=== PATIENT | female | born 1945 | race Caucasian/White ===

== ENCOUNTER 2018-11-09 13:10 | Inpatient (IN) ==
[2018-11-09] MEDS ORDERED: NS 1,000 ML IV ONE (13:29)
--- NOTE | 2018-11-09 14:04 | Diag Imaging Result Doc PS360 ---
EXAM: CHEST-PORTABLE HISTORY: stroke like symptoms TECHNIQUE: AP chest COMPARISON: 10/03/2018 FINDINGS: The lungs are well expanded. The heart is remains enlarged. The vessels are not distended. There are no infiltrates. No effusion identified. There is cement within a mid thoracic vertebra. This is unchanged. IMPRESSION: Stable chest. Electronically signed by Semaj Olivera 11/09/2018 2:02 PM
--- NOTE | 2018-11-09 14:21 | Diag Imaging Result Doc PS360 ---
EXAM: CT HEAD W/O CONTRAST INDICATION: stroke like symptoms TECHNIQUE: This exam was performed using automated exposure control, adjustment of mA or kV according to patient size, and/or use of iterative reconstruction technique. COMPARISON: 10/03/2018 FINDINGS: There is patchy low attenuation in the periventricular and subcortical white matter suggesting moderate microangiopathy, stable. There is no definite acute infarct given the limited sensitivity of CT versus MRI. There is no discrete intracranial mass, mass effect, or intracranial hemorrhage. The surrounding soft tissues and bony structures are essentially unremarkable. IMPRESSION: Stable chronic appearing changes as described. No definite acute pathology by CT. Electronically signed by Ander Cherry 11/09/2018 2:18 PM
[2018-11-09 15:10] LABS: URINE SOURCE CLEAN CATCH
[2018-11-09 15:26] LABS: BASO# 0.03 X1000 (0.0-0.2); BASO% 0.4 % (0.0-0.8); EOS# 0.09 X1000 (0.0-0.7); EOS% 1.3 % (0.0-10.0); HEMOGLOBIN 9.1 g/dL (12.0-16.0); LYMPH# 2.02 X1000 (1.2-3.4); LYMPH% 28.6 % (20.5-51.1); MCH 23.3 PG (27-31); MCHC 29.4 g/dL (33-37); MCV 79.5 FL (81-99); MONO# 0.64 X1000 (0.11-0.59); MONO% 9.1 % (1.7-9.3); MPV 9.7 FL (7.4-10.4); NEUT# 4.28 X1000 (1.4-6.5); NEUT% 60.6 % (42.2-75.2); PLT 255 X1000 (130-400); RDW 17.2 % (11.5-14.5); WBC 7.06 X1000 (4.8-10.8)
[2018-11-09 15:26] LABS: BILIRUBIN URINE NEGATIVE (NEGATIVE); BLOOD URINE NEGATIVE (NEGATIVE); COLOR STRAW; GLUCOSE URINE 200 mg/dL (NEGATIVE); KETONE URINE NEGATIVE (NEGATIVE); LEUKOCYTES URINE NEGATIVE (NEGATIVE); NITRITE URINE NEGATIVE (NEGATIVE); PROTEIN URINE NEGATIVE (NEGATIVE); SP GRAVITY URINE 1.001; TURBIDITY URINE CLEAR (CLEAR); UROBILINOGEN URINE NORMAL (NORMAL)
[2018-11-09 15:27] LABS: INR 0.94; PROTIME 13.3 Seconds (11.0-16.0)
[2018-11-09 15:27] LABS: UR EPITHELIAL CELLS <10 /HPF (<10); URINE BACTERIA NEGATIVE /HPF; URINE RBC <10 /HPF (<10); URINE WBC <10 /HPF (<10)
[2018-11-09 15:28] LABS: PTT 27.1 Seconds (22.3-41.8)
[2018-11-09 15:46] LABS: AGAP 13; ALB/GLOB RATIO 1.8; ALBUMIN 4.1 g/dL (3.5-5.0); ALKALINE PHOSPHATASE 79 U/L (32-104); BUN 14 mg/dL (8-22); CHLORIDE 103 mmol/L (98-107); COSMO 290; ESTIMATED GFR 55; GLUCOSE 212 mg/dL (70-104); GOT 16 U/L (10-30); GPT < 5 U/L (10-36); POTASSIUM 4.1 mmol/L (3.5-5.1); SODIUM 142 mmol/L (136-145); TCO2 26 mmol/L (25-35); TOTAL BILIRUBIN 0.23 mg/dL (0.20-1.00); TOTAL PROTEIN 6.4 g/dL (6.3-8.3)
--- NOTE | 2018-11-09 15:58 | PROVIDER DOCUMENTATION ---
This chart was entered by Aparna Joe Scribe, acting as scribe for Gualberto House MD. HPI-Neurological Disorder - General Chief Complaint: Brain Attack Stated Complaint: WEAKNESS Time Seen by Provider: 11/09/18 13:35 Source: patient Allergies/Adverse Reactions: Patient Allergies Allergy/AdvReac Type Severity Reaction Status Date / Time aspirin AdvReac Intermediate ITCHING Verified 11/09/18 14:28 Home Medications: Home Medication List Medication Instructions Recorded Confirmed Last Taken Type Benazepril HCl 40 mg PO DAILY 06/13/13 10/03/18 10/03/18 History Clopidogrel [Plavix] 75 mg PO DAILY 06/13/13 10/03/18 10/03/18 History Metformin HCl 500 mg PO WLUNCH 06/13/13 10/03/18 10/03/18 History Metformin HCl [Glucophage] 1,000 mg PO BID CC 06/13/13 10/03/18 10/03/18 History PRAVAstatin [Pravachol] 40 mg PO QHS 06/13/13 10/03/18 10/03/18 History Pregabalin [Lyrica] 100 mg PO BID 06/13/13 10/03/18 10/03/18 History Carbidopa/Levodopa [Carbidopa-Levo 2 tab PO TID 10/03/18 10/03/18 10/03/18 History 25-100 Tab] Cholecalciferol (Vit D3) [Vitamin 1 cap PO DAILY 10/03/18 10/03/18 10/03/18 History D] Clonidine [Catapres] 1 tab PO BID 10/03/18 10/03/18 10/03/18 History Dextromethorphan HBr/Quinidine 1 cap PO BID 10/03/18 10/03/18 10/03/18 History [Nuedexta 20-10 mg Capsule] Furosemide [Lasix] 1 tab PO DAILY 10/03/18 10/03/18 10/03/18 History Glipizide 1 tab PO BID 10/03/18 10/03/18 10/03/18 History Cyanocobalamin 1,000 microgm IM DAILY #10 vial 10/07/18 Unknown Rx Cyanocobalamin (Vitamin B-12) 1,000 mcg IJ DIRECTED #10 ml 10/07/18 Unknown Rx [Cyanocobalamin Injection] Levofloxacin [Levaquin] 500 mg PO DAILY #7 tab 10/07/18 Unknown Rx - History of Present Illness-Neuro Nature of Presenting Problem: Patient is a 73 year old female who presents to the ED via EMS with stroke like symptoms. Patient states she woke this morning and had right leg weakness. Patient states history of CVA. Patient denies vision changes. Recent admission 10/04/18 for similar symptoms, resolved in hospital, had MRI/MRA, carotid dopplers, etc. Headache Location: reports: other (no headache reported) Severity: reports: mild Onset/Duration: reports: this morning Timing: reports: still present Character of Altered Mental Status: reports: N/A Character of Deficits: reports: new weakness, decreased ability to walk New weakness or altered sensation location:: reports: RLE, right facial Associated Symptoms: reports: denies symptoms Similar Symptoms Previously?: No Recently seen or treated by another doctor?: No Review of Systems - Adult - REVIEW OF SYSTEMS - ADULT Constitutional: reports: no symptoms reported Eyes: reports: no symptoms reported Ears, Nose, Mouth & Throat: reports: no symptoms reported Cardiovascular: reports: no symptoms reported Respiratory: reports: no symptoms reported Gastrointestinal: reports: no symptoms reported Genitourinary: reports: no symptoms reported Musculoskeletal: reports: no symptoms reported Integumentary: reports: no symptoms reported Neurological: reports: other (RLE weakness). denies: dizziness/vertigo, headache/migraines, numbness, seizure, syncope Psychiatric: reports: no symptoms reported Endocrine: reports: no symptoms reported Hematologic/Lymphatic: reports: no symptoms reported Allergic/Immunologic: reports: no symptoms reported All Other Systems: Reviewed and Negative Past History - Adult - PAST MEDICAL HISTORY-ADULT Review of Records: reports: Nursing Assessment Review, Medications Reviewed, Social history reviewed & non-contributory. Major Childhood Illnesses: reports: denies history Cardiovascular: reports: HTN, hyperlipidemia Respiratory: reports: denies history Gastrointestinal: reports: denies history Obstetrical/Gynecological: reports: denies history Genitourinary: reports: kidney stones Musculoskeletal: reports: denies history Neurological: reports: CVA Psychiatric: reports: depression Endocrine/Immune: reports: Diabetes Other Conditions: reports: denies history - PRIOR SURGERIES/PROCEDURES Surgical/Procedure History: reports: appendectomy, cholecystectomy, hysterectomy , , back/neck (back) - IMMUNIZATION STATUS Childhood Immunizations: See Nurse Assessment Flu Vaccine: See Nurse Assessment - FAMILY HISTORY Family History: reviewed, not pertinent - SOCIAL HISTORY Smoking: denies Substance Use: denies Physical Exam- Neurological - Physical Exam-Neuro Initial Vital Signs Reviewed: Yes General Appearance: alert, no apparent distress Eye Exam: bilateral eye: normal inspection HENMT: other (flattened right side nasolabial fold.) Head Injury: no evidence of injury Respiratory: chest non-tender, lungs clear, normal breath sounds Cardiovascular: normal peripheral pulses, regular rate, rhythm customer professional Exam: normal hearing, normal speech Motor/Sensory: pronator drift (R) (RLE) Integumentary: normal color, normal turgor, warm/dry Psych/Mental Status: normal mood/affect, oriented x 3 Progress - PLAN OF CARE/RESULTS Progress/Plan/Lab Results: Vital Signs - 8 hr 11/09/18 14:05 11/09/18 15:00 11/09/18 15:32 Temperature 98.2 F Pulse Rate 98 H 74 65 Respiratory Rate 18 21 16 Blood Pressure 104/46 158/70 167/63 O2 Sat by Pulse Oximetry 100 96 97 Laboratory Results - last 24 hr 11/09/18 11/09/18 11/09/18 14:35 14:57 15:00 WBC 7.06 RBC 3.90 L Hgb 9.1 L Hct 31.0 L MCV 79.5 L MCH 23.3 L MCHC 29.4 L RDW Std Deviation 17.2 H Plt Count 255 MPV 9.7 Immature Gran % (Auto) 0.0 Neut % (Auto) 60.6 Lymph % (Auto) 28.6 [place] % (Auto) 9.1 Eos % (Auto) 1.3 Baso % (Auto) 0.4 Immature Gran # (Auto) 0.00 Neut # (Auto) 4.28 Lymph # (Auto) 2.02 [place] # (Auto) 0.64 H Eos # (Auto) 0.09 Baso # (Auto) 0.03 PT INR PTT (Actin FS) Sodium Potassium Chloride Carbon Dioxide Anion Gap BUN Creatinine Estimated GFR/1.73 m2 BUN/Creatinine Ratio Glucose POC Glucose 246 H Calculated Osmolality Calcium Total Bilirubin AST ALT Alkaline Phosphatase Troponin T Total Protein Albumin Globulin Albumin/Globulin Ratio Urine Source CLEAN CATCH Urine Color STRAW Urine Turbidity CLEAR Urine pH 5.0 Ur Specific Sula 1.001 Urine Protein NEGATIVE Ur Glucose (Stick) 200 A Ur Ketones (Stick) NEGATIVE Urine Blood NEGATIVE Urine Nitrite NEGATIVE Urine Bilirubin NEGATIVE Urobilinogen Dipstick NORMAL Urine Leukocytes NEGATIVE Urine WBC (Auto) <10 Urine RBC (Auto) <10 U Epithel Cells (Auto) <10 Urine Bacteria (Auto) NEGATIVE 11/09/18 11/09/18 11/09/18 15:00 15:00 15:00 WBC RBC Hgb Hct MCV MCH MCHC RDW Std Deviation Plt Count MPV Immature Gran % (Auto) Neut % (Auto) Lymph % (Auto) [place] % (Auto) Eos % (Auto) Baso % (Auto) Immature Gran # (Auto) Neut # (Auto) Lymph # (Auto) [place] # (Auto) Eos # (Auto) Baso # (Auto) PT 13.3 INR 0.94 PTT (Actin FS) 27.1 Sodium 142 Potassium 4.1 Chloride 103 Carbon Dioxide 26 Anion Gap 13 BUN 14 Creatinine 1.0 H Estimated GFR/1.73 m2 55 BUN/Creatinine Ratio 14 Glucose 212 H POC Glucose Calculated Osmolality 290 Calcium 9.0 Total Bilirubin 0.23 AST 16 ALT < 5 L Alkaline Phosphatase 79 Troponin T < 0.010 Total Protein 6.4 Albumin 4.1 Globulin 2.3 Albumin/Globulin Ratio 1.8 Urine Source Urine Color Urine Turbidity Urine pH Ur Specific Sula Urine Protein Ur Glucose (Stick) Ur Ketones (Stick) Urine Blood Urine Nitrite Urine Bilirubin Urobilinogen Dipstick Urine Leukocytes Urine WBC (Auto) Urine RBC (Auto) U Epithel Cells (Auto) Urine Bacteria (Auto) Orders Category Date Time Status Cardiac Monitoring DIRECTED Care 11/09/18 13:28 Active Finger Stick Blood Sugar (ED) DIRECTED Care 11/09/18 13:28 Active Misc. NRSG Communication Order DIRECTED Care 11/09/18 13:28 Active Oxygen Therapy- ED Nursing DIRECTED Care 11/09/18 13:28 Active Saline Loc NOW Care 11/09/18 13:28 Active CHEST-PORTABLE [RAD] Stat Exams 11/09/18 13:[address] HEAD W/O CONTRAST [CT] Stat Exams 11/09/18 13:28 Completed CBC WITH ELECTRONIC DIFF [HEME] Stat Lab 11/09/18 15:00 Completed COMPREHENSIVE METABOLIC PANEL [CHEM] Stat Lab 11/09/18 15:00 Completed PROTIME WITH INR [COAG] Stat Lab 11/09/18 15:00 Completed PTT [COAG] Stat Lab 11/09/18 15:00 Completed TROPONIN T Stat Lab 11/09/18 15:00 Completed URINALYSIS W/POSS RFLX CULT [URINALYSIS] Stat Lab 11/09/18 14:57 Completed 0.9% Sodium Chloride Inj [Ns] 1,000 ml Med 11/09/18 13:29 Discontinued IV 999 mls/hr EKG [EKG] Stat Ther 11/09/18 13:28 Ordered 1553 - Dr. House consulted with Dr. Berry about patient. Result Diagrams: 11/09/18 15:00 11/09/18 15:00 - REASSESSMENT Reassessment #1 Time Reassessed: 15:56 Status: unchanged Reassessment Comment: Dr. Berry accepts patient for admission - EKG 1 Time of EKG reading by physician:: 14:38 EKG Read and Signed by:: Gualberto House EKG Interpretation (*Must complete 3 of following elements*): Abnormal Rate: 72 Rhythm: normal sinus rhythm Comments: cannot rule out anterior infarct, age undetermined - XRAY 1 XRAY Study: Chest Impression: Abnormal (EXAM: CHEST-PORTABLE HISTORY: stroke like symptoms TECHNIQUE: AP chest COMPARISON: 10/03/2018 FINDINGS: The lungs are well expanded. The heart is remains enlarged. The vessels are not distended. There are no infiltrates. No effusion identified. There is cement within a mid thoracic vertebra. This is unchanged. IMPRESSION: Stable chest. Electronically signed by Semaj Olivera 11/09/2018 2:02 PM 11/09/18 1402 Interpreting Physician: Semaj Olivera MD Dictated Date/Time: 11/09/18 1401 cc: Gualberto House MD; Luciano Berry MD), See EMR Report - CT/MRI 1 CT Study: Head Impression: Abnormal, See EMR Report (EXAM: CT HEAD W/O CONTRAST INDICATION: stroke like symptoms TECHNIQUE: This exam was performed using automated exposure control, adjustment of mA or kV according to patient size, and/or use of iterative reconstruction technique. COMPARISON: 10/03/2018 FINDINGS: There is patchy low attenuation in the periventricular and subcortical white matter suggesting moderate microangiopathy, stable. There is no definite acute infarct given the limited sensitivity of CT versus MRI. There is no discrete intracranial mass, mass effect, or intracranial hemorrhage. The surrounding soft tissues and bony structures are essentially unremarkable. IMPRESSION: Stable chronic appearing changes as described. No definite acute pathology by CT. Electronically signed by Ander Cherry 11/09/2018 2:18 PM [id number]/09/[id number] Interpreting Physician: Ander Cherry MD Dictated Date/Time: 11/09/18 1418 cc: Gualberto House MD; Luciano Berry MD) - CONSULTS/PCP/HOSPITALIST Notification #1 *Consult/PCP/Hospitalist*: Stroke team paged at 1420, Will be Dr. Curiel #2 Consult: Dr. Curiel Time Discussed: 14:40 Reason/Comments: Dr. House consulted with Dr. Curiel about patient. Consult Disposition: other (Dr. Curiel states patient can stay at [facility] and have telemedicine) #3 Consult: DAILY Ackerman for Hospitalist Time Discussed: 15:50 Reason/Comments: Dr. House consulted with Tyron about patient. Consult Disposition: other (patient is a Dr. Berry patient.) Departure - Departure Date of Disposition Decision: 11/09/18 Time of Disposition Decision: 15:53 DIAGNOSIS: Right leg weakness CVA (cerebral vascular accident) Qualifiers: CVA mechanism: thrombosis Precerebral and cerebral artery: anterior cerebral artery Laterality of affected vessel: left Qualified Code(s): I63.322 - Cerebral infarction due to thrombosis of left anterior cerebral artery Type 2 diabetes mellitus with hyperglycemia Qualifiers: Diabetes mellitus oysterman insulin use: unspecified residential insulin use status Qualified Code(s): E11.65 - Type 2 diabetes mellitus with hyperglycemia Disposition: ADMITTED INPATIENT 09 Certified Medical Emergency: Emergent Condition: Stable Referrals and Follow-Ups: Luciano Berry MD [Primary Care Provider] - - Critical Care Note This patient required my direct & personal management of CC.: No Attestation - Physician/ GHANSHYAM Attestation Patient care was provided by Advanced Practice Provider:: No The physician spent face to face time with patient:: Yes Advanced Practice Provider documentation review:: Supervising physician onsite and consulted in the evaluation and care of this patient. The physician did have a face to face encounter with the patient. - NIH Stroke Scale NIH Type: Initial Evaluation Level of Consciousness: 0-Alert LOC Questions (ask month and age): 0-Answers Both Correctly LOC Commands (ask to open & close eyes;make a fist, let go): 0-Obeys Both Correctly Best Gaze (horizontal eye movement): 0-Normal Visual (use finger movement, counting or visual threat): 0-No Visual Loss Facial Palsy (show teeth or raise eyebrows & close eyes tght: 1-Minor Paralysis Motor Function-left arm: 0-Normal Motor Function-right arm: 0-Normal Motor Function-left le-Normal Motor Function-right le-Drift Limb Ataxia([id number], or heel to daniel): 0-No Ataxia Sensory(pin prick to face,arms,trunk,legs-compare side/side): 1-Mild to Moderate Decrease in Sensation Best Language(name item/read sentence.Ex-Down to Earth): 0-No Aphasia Dysarthria(Pt read words or say words Ex.Mama,Tip-Top,Thanks: 0-Normal Articulation Extinction and Inattention: 0-Normal NIH Total Score: 3 Modified Hill Score Criteria: 3-moderate disability Stroke tPA Guidelines - Inclusion Criteria for IV tPA 18 years old or older: Yes Ischemic stroke with measurable deficit: Yes Onset <3 hours ago *OR* 3-4.5 hours ago: No - Exclusion Criteria for IV tPA Evidence of intracranial hemorrhage on CT: No Presentation suggest SAH: No CT reveals defined area of hypodensity: No - Consultation Candidate for:: NOT A CANDIDATE (due to patient having a wake up stroke) This chart was documented by the indicated scribe, (Aparna Joe Scribe) and accurately reflects the services I performed and decisions made by Harsh acharya Kent A., MD, as attested by the provider's signature.
[2018-11-09] MEDS ORDERED: ZOFRAN PO PRN (15:59)
[2018-11-09] MEDS ORDERED: TYLENOL PO PRN (15:59)
[2018-11-09 18:32] LABS: URINE SOURCE CLEAN CATCH
[2018-11-09 18:35] LABS: BILIRUBIN URINE NEGATIVE (NEGATIVE); BLOOD URINE NEGATIVE (NEGATIVE); COLOR STRAW; GLUCOSE URINE NEGATIVE (NEGATIVE); KETONE URINE NEGATIVE (NEGATIVE); LEUKOCYTES URINE NEGATIVE (NEGATIVE); NITRITE URINE NEGATIVE (NEGATIVE); PROTEIN URINE NEGATIVE (NEGATIVE); TURBIDITY URINE CLEAR (CLEAR); UR EPITHELIAL CELLS <10 /HPF (<10); URINE BACTERIA NEGATIVE /HPF; URINE RBC <10 /HPF (<10); URINE WBC <10 /HPF (<10); UROBILINOGEN URINE NORMAL (NORMAL)
[2018-11-09] MEDS: GLUCOPHAGE PO SCH (22:26)
[2018-11-09] MEDS: PRAVACHOL PO SCH (22:26)
[2018-11-09] MEDS: CATAPRES PO SCH (22:26)
[2018-11-09] MEDS: LYRICA PO SCH (22:26)
[2018-11-09] MEDS: NUEDEXTA 20-10 MG CAPSULE PO SCH (22:31)
[2018-11-09] MEDS: GLUCOTROL PO SCH (22:33)
--- NOTE | 2018-11-09 22:44 | HISTORY AND PHYSICAL ---
CHIEF COMPLAINT: TIA symptoms on the right side. Started this morning. Brain attack protocol was initiated. She was admitted with similar symptoms last month. Patient had an MRI, carotid Dopplers, echo done. I could not find any deficits. Apparently, a workup in the ER was negative. Admitted to the hospital for TIA symptoms on the right side. As per the family, the patient has a droop on the right side of the face, slight weakness, but when I came back from the office, I did not see any deficits. As a result, the patient was readmitted, and we will repeat the workup. We will consult Dr. Strong. I am going to do the CTA of head and neck vessels tomorrow to rule out any intracranial stenosis. As a result, a hospital admission was warranted. PAST MEDICAL HISTORY: 1. Atypical chest pain. Stress test was negative in January 2011. 2. Cervical spondylosis, C5-C6. 3. Right cerebrovascular accident, without any deficits. 4. Type 2 diabetes. 5. Hypertension. 6. Compression fracture at T7. 7. Hyperlipidemia. 8. Kidney stones. 9. Parkinsonism. 10. B12 deficiency. PAST SURGICAL HISTORY: Benign breast biopsy on the right side, cholecystectomy, hysterectomy, C- section, back surgery, left knee arthroplasty, cystocele repair. MEDICATIONS: Benazepril 40 mg daily, Plavix 75 daily, metformin 500 with lunch, metformin 1000 p.o. b.i.d., pravastatin 40 daily, Lyrica 100 p.o. b.i.d., carbidopa/levodopa 2 tablets p.o. t.i.d., vitamin D3 1 capsule daily, clonidine 1 tablet p.o. b.i.d., Nuedexta 1 capsule p.o. b.i.d., Lasix 20 daily, glipizide 5 mg p.o. b.i.d., B12 injections, vitamin D 50,000 units once a week. ALLERGIES: Reported to Cipro and aspirin. SOCIAL HISTORY: . Five children. Retired. No smoking. No alcohol. FAMILY HISTORY: Father at 78, blood disorder. Mom of old age at 88. HEALTH MAINTENANCE: Flu vaccine declined. Mammography 12/2017, DEXA scan 12/2017, colonoscopy 08/2013. REVIEW OF SYSTEMS: HEENT: No headache. No vision problem. Some weakness on the right side of the body. Neck: No goiter. No lymphadenopathy. No bruit. Cardiopulmonary: No chest pain, shortness of breath, PND, orthopnea. GI: No nausea, vomiting, abdominal pain. : No history of hesitancy, frequency, dysuria. No swelling of feet. No joint pain. Neurologic: No definitive weakness noted, other than right-sided weakness. PHYSICAL EXAMINATION: VITAL SIGNS: Temperature is 97 degrees, pulse is 63, blood pressure is stable, 5 feet 4, 170 pounds. HEENT: No facial droop. Asymmetry noted. Pupils equal, reacting to light. NECK: Supple. No lymphadenopathy. No goiter. CHEST: Bilateral air entry. HEART: Sounds are regular. ABDOMEN: Belly is soft, obese, nontender. Good bowel sounds. No peripheral edema. No obvious deficits noted. INVESTIGATIONS: CBC: White cell count 7, hematocrit 31, platelets 255,000. PT/INR is normal. SMA-7: Creatinine 1.0, glucose 212. Cardiac enzymes were negative. Urinalysis is clear. CT head is negative. Chronic ischemic changes. Chest x-ray was stable. ASSESSMENT AND PLAN: 1. A 73-year-old white female, readmitted to the hospital with transient ischemic attack symptoms on the right side. Suspicious lesions on the left side. CT is negative. Brain attack protocol was initiated by Dr. Russ. We will admit here, and then we will do the CT angiogram of the head and neck vessels, since she had a negative workup last month. Consult with neurologist, physical therapy. 2. Continue on Plavix, Pravachol. 3. Parkinsonism, on Sinemet 2 tablets p.o. t.i.d. 4. Vitamin D deficiency and replacement. 5. Pseudobulbar affect, on Nuedexta. 6. Deep venous thrombosis prophylaxis with Lovenox. 7. Reconcile home medications. 8. Diabetes. Continue on glipizide and metformin. Follow up on sliding scale with insulin coverage. Discussed with the family at bedside, and follow up. cc: Arjun Berry MD
[2018-11-09] MEDS: HUMULIN R SUBQ SCH (22:53)
[2018-11-10] MEDS: HUMULIN R SUBQ SCH ×2 (06:58→12:05)
--- NOTE | 2018-11-10 07:43 | EKG Report ---
Test Performed on : 11/09/2018 2:38:58 PM Test Reason : Stroke like symptoms Blood Pressure : / mmHG Vent. Rate : 072 BPM Atrial Rate : 072 BPM P-R Int : 188 ms QRS Dur : 082 ms QT Int : 424 ms P-R-T Axes : 041 012 047 degrees QTc Int : 464 ms Normal sinus rhythm. Cannot rule out Anterior infarct , age undetermined Abnormal ECG When compared with ECG of 03-OCT-2018 20:48, (Unconfirmed) No significant change was found Unconfirmed Result
[2018-11-10] MEDS: GLUCOPHAGE PO SCH ×2 (08:55→12:15)
[2018-11-10] MEDS ORDERED: SINEMET 25/100 PO SCH (09:00)
[2018-11-10] MEDS: GLUCOTROL PO SCH (10:24)
[2018-11-10] MEDS: LYRICA PO SCH (10:24)
[2018-11-10] MEDS: LASIX PO SCH (10:25)
[2018-11-10] MEDS: LOTENSIN PO SCH (10:25)
[2018-11-10] MEDS: NUEDEXTA 20-10 MG CAPSULE PO SCH (10:25)
[2018-11-10] MEDS: CATAPRES PO SCH (10:25)
[2018-11-10] MEDS: PLAVIX PO SCH (10:25)
[2018-11-10] MEDS: LOVENOX SUBQ SCH (10:27)
--- NOTE | 2018-11-10 10:44 | Diag Imaging Result Doc PS360 ---
EXAM: CT ANGIOGRAM HEAD/NECK 11/10/2018 HISTORY: TIA right TECHNIQUE: This exam was performed using automated exposure control, adjustment of mA or kV according to patient size, and/or use of iterative reconstruction technique. COMMENT: 3-D MIPS were performed. There is heavy calcification in the cavernous portions of both internal carotid arteries but both appear to be patent. The brachiocephalic and both common carotid arteries are patent. There is some calcified plaque at the origin of the right internal carotid with less than 50% diameter stenosis. Both anterior and middle cerebral arteries are patent. There is no evidence of aneurysm. Both posterior cerebral arteries are patent. IMPRESSION: Calcified pleural plaque particularly in the cavernous carotids and the proximal right internal carotid artery. Electronically signed by Philip Carlos 11/10/2018 10:41 AM
--- NOTE | 2018-11-10 14:53 | CONSULTATION ---
DATE OF CONSULTATION: 11/10/2018 HISTORY OF PRESENT ILLNESS: Ms. Méndez is 73 years old and I have followed her for parkinsonism for several years. This time, she reports noticing transient increased gait difficulty, particularly dragging her right leg, beginning yesterday morning. She believes that has resolved and now she seems a little bit weak and feeble in both legs, but she does not notice a focal feature. There was not definite focal right arm involvement or any other left hemisphere feature. In retrospect, she thinks she had similar transient gait difficulty approximately a month ago. She had presented several years ago with features of Parkinson disease, which were never very dramatic. She seemed to improve with addition of levodopa, but response was not dramatic. She has been convinced that increased levodopa dose has provided benefit. We have discussed at length in the office my concern that she may have a parkinsonian syndrome other than true idiopathic Parkinson disease and that Sinemet may not be providing as much benefit as she believes. Recent dose is carbidopa/levodopa 25/100 1-1/2 tablets t.i.d. and 1 tablet at bedtime (550 mg levodopa daily). She has tolerated that regimen. We have discussed potential dopaminergic side effects at length and she believes she has not had those problems. Her last year. She was despondent for a while. There were features of pseudobulbar affect. She was started on Nuedexta and noted significant benefit. Family has agreed with that assessment of Nuedexta benefit. She continues Nuedexta. NEUROLOGICAL EXAMINATION: On exam now, she is awake, alert, attentive. Speech is not dysarthric. Voice is strong, not significantly parkinsonian at this moment. Language function is intact. Memory is fair, not tested thoroughly. She has full visual turpin tested by confrontational finger counting. She has good lateral eye movement with limited upgaze typical for age and parkinsonism. Facial motility is diminished bilaterally. Tongue is midline. Strength is normal in the arms and legs. She did well on [id number] testing bilaterally. There was not definite resting tremor. She has a very slight tremor with action, most noted in postural suspension, equal on the right and left. Tone is a little bit increased throughout, but there is not definite cogwheeling. Her gait is apractic with prominent festination. She is unsteady and reports a sense that she would fall if not assisted vigorously. IMPRESSION: 1. Parkinsonism. This is likely idiopathic Parkinson disease, but I have some concerns as mentioned above. We discussed options today, including another trial off of levodopa. I am reluctant to recommend that while she is hospitalized. I think a better plan is to carefully increase levodopa and follow her clinically while physical therapy is on board here. The admission record shows carbidopa/levodopa 25/100, 2 tablets t.i.d., and I will make that 2 tablets q.i.d. We discussed potential dopaminergic side effects and we discussed psychosis at some length. She and family will be aware. Further plans will depend on her clinical course. 2. Depression, possible persistent pseudobulbar affect. This would be common with Parkinson disease. Since she reports definite and continued benefit with Nuedexta, I will leave that dose unchanged. 3. We need to assess her cognitive function when that is practical, difficult to do that carefully while hospitalized in a semiprivate room with so much visitation and commotion. Eventually, will need to consider cholinesterase inhibitor trial. Thanks for asking Neurology to see Ms. Méndez. Will be glad to continue to follow her as an outpatient after discharge. cc: MD Arjun Castaneda III, MD MTDD
--- NOTE | 2018-11-10 23:35 | PROGRESS NOTE ---
DATE: 11/10/2018 SUBJECTIVE: The patient is doing better. No weakness noted on the right side. EXAMINATION: Vitals: Temperature is 97 degrees, pulse is 70, blood pressure is stable. HEENT: No facial asymmetry noted. Neck: Supple. Chest: Clear. Heart: Sounds are regular. Abdomen: Belly is soft, nontender. Good bowel sounds. Neurologic: No neurological deficits. INVESTIGATIONS: CT angiogram of the head and neck is pending. ASSESSMENT AND PLAN: Transient ischemic attack symptoms on the right side. Previous workup was negative. It looks like more deconditioning from Parkinson's disease. Follow up on CT angiogram of head and neck. Waiting for Dr. Strong's consult. Out of the bed with physical therapy. Continue present medical regimen. Discussed with the family at bedside. We will also discuss about possible rehab, and follow up on these tests. LEVEL OF DOCUMENTATION: 25 minutes. cc: Arjun Berry MD
[2018-11-11] MEDS: HUMULIN R SUBQ SCH ×6 (00:13→23:00)
[2018-11-11] MEDS: GLUCOTROL PO SCH ×3 (00:15→22:57)
[2018-11-11] MEDS: LYRICA PO SCH ×3 (00:15→22:57)
[2018-11-11] MEDS: SINEMET 25/100 PO SCH ×6 (00:15→22:57)
[2018-11-11] MEDS: PRAVACHOL PO SCH ×2 (00:15→22:57)
[2018-11-11] MEDS: NUEDEXTA 20-10 MG CAPSULE PO SCH ×3 (00:15→23:38)
[2018-11-11] MEDS: CATAPRES PO SCH ×3 (00:17→22:56)
[2018-11-11] MEDS: LASIX PO SCH (08:55)
[2018-11-11] MEDS: LOTENSIN PO SCH (08:55)
[2018-11-11] MEDS: PLAVIX PO SCH (08:55)
[2018-11-11] MEDS: LOVENOX SUBQ SCH (08:56)
--- NOTE | 2018-11-11 11:33 | PROGRESS NOTE ---
DATE: 11/11/2018 Ms. Méndez reports feeling stronger, walking better with more stability. She did well with physical therapy assisted gait this morning. She has not had any adverse dopaminergic effect with the higher scheduled dose, Sinemet 25/100 two tablets q.i.d. We reviewed discussion of potential adverse effects including drowsiness, nausea, chorea, psychosis. She and family will be on the look out and will report if any problems. She has appointment for followup in my office in about 2 months, and she will report sooner if needed. Thanks for asking me to see Ms. Méndez here. cc: MD Arjun Castaneda III, MD MTDManjula
[2018-11-11] MEDS: GLUCOPHAGE PO SCH ×3 (11:54→18:02)
--- NOTE | 2018-11-11 17:41 | PROGRESS NOTE ---
DATE: 11/11/2018 SUBJECTIVE: The patient is a little better and no other complaints. I appreciate Dr. Strong consult. EXAM: Vital signs: Temperature 97, pulse is 65, blood pressure is 156/65. HEENT: Within normal limits. Neck: Supple. Chest: Clear. Heart: Sounds are regular. NEUROLOGIC: No obvious deficits noted. LABS: All the workup was negative. Previous carotid Doppler was negative. ASSESSMENT AND PLAN: 1. Altered mental status. No definitive neurological diseases. Ongoing Parkinson disease. Dr. Strong wants to increases carbidopa levodopa 2 tablets 4 times daily. 2. Continue present treatment for diabetes. 3. Hypertension. 4. Hyperlipidemia. Discussed with the family about the outpatient rehab and she has not made any decision. Hopefully will discharge either home with home health or rehab. LEVEL OF DOCUMENTATION: 15 minutes. cc: Arjun Berry MD
[2018-11-12] MEDS: HUMULIN R SUBQ SCH (06:36)
[2018-11-12] MEDS: CATAPRES PO SCH (10:11)
[2018-11-12] MEDS: LYRICA PO SCH (10:11)
[2018-11-12] MEDS: PLAVIX PO SCH (10:11)
[2018-11-12] MEDS: LOTENSIN PO SCH (10:11)
[2018-11-12] MEDS: SINEMET 25/100 PO SCH ×2 (10:11→13:35)
[2018-11-12] MEDS: GLUCOTROL PO SCH (10:11)
[2018-11-12] MEDS: GLUCOPHAGE PO SCH ×2 (10:12→13:36)
[2018-11-12] MEDS: LOVENOX SUBQ SCH (10:12)
[2018-11-12] MEDS: LASIX PO SCH (10:12)
[2018-11-12 12:04] VITALS: BP 154/56
[2018-11-12] MEDS: NUEDEXTA 20-10 MG CAPSULE PO SCH (13:34)
[2018-11-13] MEDS ORDERED: VITAMIN D PO SCH (09:00)
--- NOTE | 2018-11-13 10:04 | DISCHARGE SUMMARY ---
ADMISSION DATE: 11/09/2018 DISCHARGE DATE: 11/12/2018 DISCHARGING DIAGNOSES: Altered mental status. Transient ischemic attack symptoms on the right side. No definitive stroke noted. This is related to deconditioning from Parkinson's disease. SECONDARY DIAGNOSIS: 1. Cervical spondylosis C5-C6. 2. Late night stroke on the right side without any deficits. 3. Type 2 diabetes. 4. Hypertension. 5. Compression fracture T7. 6. Hyperlipidemia. 7. Kidney stones. 8. Parkinsonism. 9. B12 deficiency. CONSULTS: Ck Strong III, MD BRIEF HISTORY: Please see the history and physical that was done on 11/09/2018. In brief, she is a 73-year-old white female who came to the emergency room with possible stroke on the right side and drooping as per the family. By the time I got here, there were no deficits noted. Previous workup a month ago was unremarkable. The patient was given physical therapy. Neurology consult was obtained. CT angiogram of the head and neck vessels did not show any significant stenosis of the carotid or intracerebral vessels. Continue on secondary prevention. Dr. Strong feels this is deconditioning from the Parkinson's disease. Increasing the Sinemet to 2 tablets, 4 times a day instead of 3 times day. The patient was given an option to go for rehab. She wants to go back home with outpatient home healthcare. The rest of the hospital course was uneventful. LABORATORY DATA: CBC: White cell count 7, hematocrit 31, platelets 255,000. PT/INR is normal. SMA 7 was normal. LFTs urinalysis is normal. DIAGNOSTIC DATA: CT head: Chronic ischemic changes. CT head and neck: Calcified plaque noted in the bilateral carotid bulbs and proximal right internal carotid artery. No hemodynamics stenosis. DISCHARGE INSTRUCTIONS: Pneumococcal vaccine 02/02/2008. Patient is refusing vaccinations. Metformin 1000 p.o. b.i.d. Metformin 500 at lunchtime. Lyrica 100 p.o. b.i.d., Pravachol 40 daily, Plavix 75 daily, benazepril 40 mg daily, carbidopa-levodopa 25-100, 2 tablets 4 times daily, clonidine 0.1 p.o. b.i.d., Nuedexta 20/10, 1 tablet p.o. b.i.d., Lasix 20 daily, glipizide 5 mg p.o. b.i.d., vitamin D3, 5000 units once daily, and outpatient home health. Follow up in my office in 10 [address] Strong. cc: MD Ck Vance III, MD
== END 2018-11-12 13:37 | disposition home health service (06) | DRG 57 ==
LOC: SUPCPDRO → ED 13:10 → 4N 16:28
PROVIDERS: ADMIT Internal Medicine; ATTEND Internal Medicine
CPT/HCPCS: 70450; 70496; 70498; 71010; 71045; 80053; 81001; 82948; 84484; 85025; 85610; 85730; 93005; 94761; 96360; 97116; 97162; 97530; 99285; A9270; J1650; J7030; Q9967; XXXXX